=== PATIENT | female | born 1955 | race Caucasian/White ===

== ENCOUNTER 2021-12-11 11:06 | Emergency (ER) | payer BC, SELFPAY ==
[2021-12-11 11:19] VITALS: BP 155/83; PULSE 74; RESP 18; TEMP 36.7; O2SAT 99
--- NOTE | 2021-12-11 11:56 | W.ED.GENAD ---
Discharge Plan Disposition Patient Disposition: HOME Condition: Stable Discharge Details Clinical Impression: Abrasion of arm, left Primary Care Provider: Unknown,Unknown ED Provider: Kevin Kelley Home Meds and New Rx's Prescriptions: Continued atorvastatin 20 mg Tablet 20 mg PO DAILY Discharge Instructions Instructions: Abrasion (ED) Additional Instructions: Leave the Mepilex bandage in place 5 to 7 days time, then may remove and replace with daily regular bandage for the next 3 to 5 days time. Anticipate healing over approximately 7 to 10 days time. Return if you develop a fever, foul-smelling discharge from the wound or any other acute concern Medical Decision Making 66-year-old female with left forearm skin flap and abrasion. Not amenable to suture repair. Irrigated and cleansed with no evidence of foreign body. Mepilex dressing placed and patient instructed on home care. She is stable for discharge. HPI General Mode of arrival: ambulatory. Date/Time Provider Initiated Documentation: 12/11/21 11:15. Limitations to Documentation: no limitations. Information obtained by: patient. History of Present Illness 66 year old F presents to the emergency department with the chief complaint of Left forearm abrasion, described as mild, Quality is described as dull and constant, and is localized to the left and upper extremity. Patient reports no radiation. Patient started experiencing this minute(s) and it has been constant. No relieving factors improve symptom(s), No exacerbating factors reported . Related Data Home Medications Medication Instructions Recorded Confirmed atorvastatin 20 mg tablet 20 mg PO DAILY 12/11/21 12/11/21 Allergies Allergy/AdvReac Type Severity Reaction Status Date / Time Penicillins Allergy Severe Hives Unverified 12/11/21 11:21 General Stated Complaint: Laceration FREDO: 4 Review of Systems Narrative: Tetanus up-to-date,4 systems reviewed and otherwise [facility] All Active Problems (Updated 12/11/21 @ 11:58 by Kevin Kelley MD) Abrasion of arm, left (Acute) Medical History High cholesterol Hypertension Social History Smoking/Tobacco Use Status: Never Smoking risk assessment performed?: Yes Alcohol Intake: never Substance use type: does not use Do you feel safe at home: Yes Do you feel safe in your relationship?: Yes Exam Narrative Exam Narrative: GEN: awake, alert, oriented 3. Pleasant, well groomed, interactive. HEAD: Normocephalic, atraumatic ENT: Mucous membranes moist, oropharynx unremarkable, External ear exam unremarkable EXT: Full ROM, ER to 6 left forearm with abrasion and skin flap, no foreign body, bleeding under control Neuro: Grossly normal neurologic exam, conversant, interactive. Psych: Speech fluent, thoughts congruent, affect normal Course Vital Signs Vital signs: Vital Signs Temperature 36.7 C 12/11/21 11:19 Pulse 74 12/11/21 11:19 Respiratory Rate 18 12/11/21 11:19 Blood Pressure 155/83 H 12/11/21 11:19 Pulse Oximetry 99 12/11/21 11:19 Temperature 36.7 C 12/11/21 11:19 Temperature Source Temporal Artery Scan 12/11/21 11:19 Pulse 74 12/11/21 11:19 Respiratory Rate 18 12/11/21 11:19 Blood Pressure 155/83 H 12/11/21 11:19 Blood Pressure Position Sitting 12/11/21 11:19 Pulse Oximetry 99 12/11/21 11:19 Oxygen Delivery Method Room Air 12/11/21 11:19 Oxygen Flow Rate 0 12/11/21 11:19
== END 2021-12-11 12:20 | disposition home or self-care (01) ==
PROVIDERS: Emergency Provider Emergency Medicine
DX: S40.812A Abrasion of left upper arm, initial encounter (principal); X58.XXXA Exposure to other specified factors, initial encounter
CPT/HCPCS: 99282